=== PATIENT | female | born 1980 | race Caucasian/White ===

== ENCOUNTER → 2017-05-24 | Outpatient (CLI) | payer OTHER ==
[~2017-05-24] MED LIST: CIPR500 PO; CLAR500; CLAR500CR; CYCL10 PO; Cefpodoxime Pr100 MG PO; ESCI20; GUAI100SY; GUAPSEER; HYDACE5 PO; HYDGUAL120; HYDR1TAB94 PO; Inderal80 MG PO; LEXAPRO; LISI5 PO; NAPR500 PO; OMEP20ER PO; OXYACE5T PO; PRED20 PO; PROAIR; PROM25 PO; Percocet 10-321 EACH PO; Pyridium100 MG PO; RABE20; SPRINTEC; Valium5 MG PO; YAS; Zoloft50 MG PO
== END ==
LOC: LAB EV 14:21 → LAB SHORT 14:21
DX: R10.9 Unspecified abdominal pain (principal)
CPT/HCPCS: 87086

== ENCOUNTER 2017-07-04 13:42 | Day surgery (SDC) | payer OTHER ==
[~2017-07-04] VITALS: Ht 160 cm; Wt 158.0 kg
[2017-07-04] MEDS ORDERED: LISI5 (14:20)
[2017-07-04] MEDS ORDERED: Hair, Skin & N1 EACH (14:20)
[2017-07-04] MEDS ORDERED: ZOLP5 ×2 (14:20→14:22)
[2017-07-04] MEDS ORDERED: CYCL10 (14:21)
[2017-07-04] MEDS ORDERED: Percocet 10-321 EACH (14:21)
== END 2017-07-04 15:45 | disposition home or self-care (01) ==
LOC: ORSCSDS 13:42
PROVIDERS: Internal Medicine Gastroenterology
PROC: 0DBK8ZX Excision of Ascending Colon, Via Natural or Artificial Opening Endoscopic, Diagnostic (ICD-10-PCS; principal; 2017-07-04 15:30)
PROC: 0DBM8ZX Excision of Descending Colon, Via Natural or Artificial Opening Endoscopic, Diagnostic (ICD-10-PCS; principal; 2017-07-04 15:30)
DX: Z85.038 Personal history of other malignant neoplasm of large intestine (principal); D12.2 Benign neoplasm of ascending colon; D12.4 Benign neoplasm of descending colon; Z15.09 Genetic susceptibility to other malignant neoplasm; I10 Essential (primary) hypertension; G47.33 Obstructive sleep apnea (adult) (pediatric); K21.9 Gastro-esophageal reflux disease without esophagitis; E66.01 Morbid (severe) obesity due to excess calories; Z68.44 Body mass index [BMI] 60.0-69.9, adult; Z79.899 Other long term (current) drug therapy
CPT/HCPCS: 88305; J7120

== ENCOUNTER → 2017-10-18 | Outpatient (CLI) | payer OTHER ==
[~2017-10-18] MED LIST changes: +CYCL10; +Hair, Skin & N1 EACH; +LISI5; +Percocet 10-321 EACH; +ZOLP5
[2017-10-18 15:04] LABS: BASOPHILS ABSOLUTE AUTO 0.06 K/mm3 (0.00-0.23); BASOPHILS PERCENT AUTO 1 % (0-2); EOSINOPHILS ABSOLUTE AUTO 0.01 K/mm3 (0.00-0.68); EOSINOPHILS PERCENT AUTO 0 % (0-6); Hematocrit 40.7 % (33.0-51.0); Hemoglobin 13.4 g/dL (11.5-16.0); IMMATURE GRAN ABSOLUTE AUTO 0.04 K/mm3 (0.00-0.10); IMMATURE GRAN PERCENT AUTO 0 % (0-1); LYMPHOCYTES ABSOLUTE AUTO 3.26 K/mm3 (0.84-5.20); LYMPHOCYTES PERCENT AUTO 34 % (21-46); MONOCYTES ABSOLUTE AUTO 0.74 K/mm3 (0.16-1.47); MONOCYTES PERCENT AUTO 8 % (4-13); Mean Corpuscular HGB Conc 32.9 g/dL (31.5-36.5); Mean Corpuscular Volume 88 fL (80-100); Mean Platelet Volume 9.6 fL (9.1-12.4); NEUTROPHILS ABSOLUTE AUTO 5.59 K/mm3 (1.96-9.15); NEUTROPHILS PERCENT AUTO 58 % (41-73); Platelet Count 310 K/mm3 (150-400); RDW Coefficient Variation 13.7 % (11.7-14.2); RDW Standard Deviation 43.5 fL (35.1-46.3); Red Blood Cell Count 4.62 M/mm3 (3.80-5.20)
[2017-10-18 15:21] LABS: Anion Gap 9 mmol/L (6-16); Blood Urea Nitrogen 12 mg/dL (8-24); Bun/Creatinine Ratio 14.3 (12.0-20.0); CO2, Blood 26 mmol/L (21-32); Calcium, Blood 9.5 mg/dL (8.5-10.1); Chloride, Blood 106 mmol/L (98-108); Creatinine, Blood 0.84 mg/dL (0.40-1.00); Glomerular Filtration Rate >60 (60-); Glucose, Blood 136 mg/dL (70-99); Potassium, Blood 4.4 mmol/L (3.5-5.5); Sodium, Blood 141 mmol/L (136-145); Thyroid Stimulating Hormone 1.142 uIU/mL (0.360-4.800)
== END | disposition home or self-care (01) ==
LOC: LAB SHORT 14:57 → LAB EV 14:57
PROVIDERS: Physician Assistant Surgical
DX: R53.83 Other fatigue (principal)
CPT/HCPCS: 80048; 84443; 85025

== ENCOUNTER → 2018-02-18 | Outpatient (CLI) | payer OTHER ==
[2018-02-18 18:45] LABS: Source, Urine Catheter
[2018-02-18 18:50] LABS: Bilirubin, Urine Neg (Neg); Blood, Urine Neg (Neg); Glucose Qualitative, Urine Neg (Neg); Ketones, Urine Neg (Neg); Leukocyte Esterase, Urine Neg (Neg); Nitrite, Urine Neg (Neg); Protein, Urine Neg (Neg); Specific Gravity, Urine 1.025 (1.003-1.022); Urobilinogen, Urine NORM (Normal)
[2018-02-18 19:01] LABS: Appearance, Urine Clear (Clear); Color, Urine Yellow (P-Yellow)
[2018-02-20 15:08] LABS: HPV 16 Negative (Negative); HPV 18 Negative (Negative); HPV OTHER HR TYPES Negative (Negative)
== END | disposition home or self-care (01) ==
LOC: LAB SHORT 16:17 → LAB 16:17
PROVIDERS: Nurse Practitioner Women's Health
DX: Z12.6 Encounter for screening for malignant neoplasm of bladder (principal); Z12.72 Encounter for screening for malignant neoplasm of vagina; Z91.89 Other specified personal risk factors, not elsewhere classified
CPT/HCPCS: 81003; 87624; G0123

== ENCOUNTER 2018-06-23 08:13 | Emergency (ER) | payer OTHER ==
[~2018-06-23] VITALS: Ht 160 cm; Wt 170.1 kg
[2018-06-23 09:51] LABS: BASOPHILS ABSOLUTE AUTO 0.02 K/mm3 (0.00-0.23); BASOPHILS PERCENT AUTO 0 % (0-2); EOSINOPHILS PERCENT AUTO 0 % (0-6); Hematocrit 40.1 % (33.0-51.0); Hemoglobin 12.6 g/dL (11.5-16.0); IMMATURE GRAN ABSOLUTE AUTO 0.01 K/mm3 (0.00-0.10); IMMATURE GRAN PERCENT AUTO 0 % (0-1); LYMPHOCYTES ABSOLUTE AUTO 1.25 K/mm3 (0.84-5.20); LYMPHOCYTES PERCENT AUTO 23 % (21-46); MONOCYTES ABSOLUTE AUTO 0.48 K/mm3 (0.16-1.47); MONOCYTES PERCENT AUTO 9 % (4-13); Mean Corpuscular HGB 27.9 pg (26.0-34.0); Mean Corpuscular HGB Conc 31.4 g/dL (31.5-36.5); Mean Corpuscular Volume 89 fL (80-100); Mean Platelet Volume 10.1 fL (9.1-12.4); NEUTROPHILS ABSOLUTE AUTO 3.79 K/mm3 (1.96-9.15); NEUTROPHILS PERCENT AUTO 68 % (41-73); Platelet Count 218 K/mm3 (150-400); RDW Coefficient Variation 14.2 % (11.7-14.2); RDW Standard Deviation 45.6 fL (35.1-46.3); Red Blood Cell Count 4.51 M/mm3 (3.80-5.20); White Blood Cell Count 5.55 K/mm3 (4.00-11.30)
[2018-06-23 10:09] LABS: Alanine Aminotransfer (ALT/SGP 177 U/L (12-78); Albumin, Blood 3.4 g/dL (3.4-5.0); Albumin/Globulin Ratio 0.9 (0.8-1.8); Alk Phos 109 U/L (50-136); Anion Gap 5 mmol/L (6-16); Aspartate Aminotrans (AST/SGOT 130 U/L (12-37); Bilirubin, Total 0.7 mg/dL (0.1-1.0); Blood Urea Nitrogen 12 mg/dL (8-24); CO2, Blood 26 mmol/L (21-32); Calcium, Blood 8.2 mg/dL (8.5-10.1); Chloride, Blood 107 mmol/L (98-108); Creatinine, Blood 0.75 mg/dL (0.40-1.00); Globulin, Blood 3.9 g/dL (2.2-4.0); Glomerular Filtration Rate >60 (60-); Glucose, Blood 108 mg/dL (70-99); Potassium, Blood 4.5 mmol/L (3.5-5.5); Sodium, Blood 138 mmol/L (136-145); Total Protein, Blood 7.3 g/dL (6.4-8.2)
[2018-06-23] MEDS ORDERED: Prednisone20 MG PO (11:47)
[2018-06-23] MEDS ORDERED: ALBU90OI61 INH (11:47)
[2018-06-23] MEDS ORDERED: BENZ100A PO (11:47)
[2018-06-24] MEDS ORDERED: OMEPRAZOLE MAGN20 MG PO (11:22)
[2018-06-24] MEDS ORDERED: CYCL10 PO (11:22)
[2018-06-24] MEDS ORDERED: ZOLP5 PO (11:23)
[2018-06-24] MEDS ORDERED: PROP160ER PO (11:23)
[2018-06-24] MEDS ORDERED: Zoloft100 MG PO (11:24)
[2018-06-24] MEDS ORDERED: RIZATRIPTAN10 MG SL (11:24)
[2018-06-24] MEDS ORDERED: Percocet 10-321 EACH PO (11:24)
[2018-06-24] MEDS ORDERED: BOTOX COSMETIC100 U (11:25)
[2018-06-24] MEDS ORDERED: MULTI VITAMIN1 EACH PO (11:25)
== END 2018-06-23 12:00 | disposition home or self-care (01) ==
LOC: ER 08:13
PROVIDERS: Physician Assistant
DX: J18.1 Lobar pneumonia, unspecified organism (principal); Z79.899 Other long term (current) drug therapy; Z79.52 Long term (current) use of systemic steroids; G43.909 Migraine, unspecified, not intractable, without status migrainosus
CPT/HCPCS: 36415; 71046; 80053; 85025; 94640; 94644; 96374; 96375; 99284-25; J1885; J2405; J7512

== ENCOUNTER 2018-09-25 12:23 | Day surgery (SDC) | payer OTHER ==
[~2018-09-25] VITALS: Ht 160 cm; Wt 157.9 kg
[~2018-09-25 12:23] MED LIST changes: +ALBU90OI61 INH; +BENZ100A PO; +BOTOX COSMETIC100 U; +MULTI VITAMIN1 EACH PO; +OMEPRAZOLE MAGN20 MG PO; +PROP160ER PO; +Prednisone20 MG PO; +RIZATRIPTAN10 MG SL; +ZOLP5 PO; +Zoloft100 MG PO
== END 2018-09-25 14:45 | disposition home or self-care (01) ==
LOC: ORSCSDS 12:23
PROVIDERS: Internal Medicine Gastroenterology
PROC: 0DJD8ZZ Inspection of Lower Intestinal Tract, Via Natural or Artificial Opening Endoscopic (ICD-10-PCS; principal; 2018-09-25 14:00)
DX: Z15.09 Genetic susceptibility to other malignant neoplasm (principal); Z86.010 Personal history of colon polyps; G47.33 Obstructive sleep apnea (adult) (pediatric); D50.9 Iron deficiency anemia, unspecified; E66.9 Obesity, unspecified; Z68.44 Body mass index [BMI] 60.0-69.9, adult; Z79.899 Other long term (current) drug therapy
CPT/HCPCS: J2250; J2704; J7120

== ENCOUNTER 2018-12-25 13:50 | Day surgery (SDC) | payer OTHER ==
[~2018-12-25] VITALS: Ht 160 cm; Wt 159.3 kg
[~2018-12-25 13:50] MED LIST changes: +Prinivil10 MG PO
[2018-12-25] MEDS ORDERED: LISI5 (14:22)
== END 2018-12-25 16:10 | disposition home or self-care (01) ==
LOC: ORSCSDS 13:50
PROVIDERS: Internal Medicine Gastroenterology
PROC: 0DB68ZX Excision of Stomach, Via Natural or Artificial Opening Endoscopic, Diagnostic (ICD-10-PCS; principal; 2018-12-25 15:15)
DX: Z15.09 Genetic susceptibility to other malignant neoplasm (principal); Z80.0 Family history of malignant neoplasm of digestive organs; K29.80 Duodenitis without bleeding; K21.9 Gastro-esophageal reflux disease without esophagitis; K29.70 Gastritis, unspecified, without bleeding; K44.9 Diaphragmatic hernia without obstruction or gangrene; G47.33 Obstructive sleep apnea (adult) (pediatric); I10 Essential (primary) hypertension; E66.01 Morbid (severe) obesity due to excess calories; Z68.44 Body mass index [BMI] 60.0-69.9, adult; Z79.899 Other long term (current) drug therapy
CPT/HCPCS: 87081; J2250; J2704; J7120

== ENCOUNTER 2019-03-06 01:53 | Emergency (ER) | payer OTHER ==
[~2019-03-06] VITALS: Ht 160 cm; Wt 163.3 kg
[2019-03-06 02:10] LABS: Source, Urine Clean Catch
[2019-03-06 02:14] LABS: Appearance, Urine Hazy (Clear); Bilirubin, Urine Neg (Neg); Blood, Urine 2+ (Neg); Color, Urine Yellow (P-Yellow); Glucose Qualitative, Urine Neg (Neg); Ketones, Urine Neg (Neg); Leukocyte Esterase, Urine 1+ (Neg); Nitrite, Urine Neg (Neg); Protein, Urine Neg (Neg); Urobilinogen, Urine NORM (Normal)
[2019-03-06 02:20] LABS: Bacteria Many /hpf; Red Blood Cells, Urine 0-2 /hpf (0-2); Squamous Epithelial Cells Few /hpf (Few)
== END 2019-03-06 03:13 | disposition home or self-care (01) ==
LOC: ER 01:53
PROVIDERS: Emergency Medicine
DX: R30.0 Dysuria (principal); S02.2XXA Fracture of nasal bones, initial encounter for closed fracture; G43.909 Migraine, unspecified, not intractable, without status migrainosus; Z79.899 Other long term (current) drug therapy; X58.XXXA Exposure to other specified factors, initial encounter
CPT/HCPCS: 81001; 81025; 87077; 87086; 87186; 99283

== ENCOUNTER → 2021-06-23 | Outpatient (CLI) | payer BC, OTHER ==
[~2021-06-23] MED LIST changes: +BUSPIRONE HCL7.5 M1 PO; +LISI20 PO; +ONDA4ODT MM; +PERCOCET 10-321 EAC2 PO; +SERT100 PO; +TIZANIDINE HCL2 M3 PO
[2021-06-23 17:27] LABS: Hematocrit 36.6 % (33.0-51.0); Hemoglobin 11.8 g/dL (11.5-16.0); Mean Corpuscular HGB 28.2 pg (26.0-34.0); Mean Corpuscular HGB Conc 32.2 g/dL (31.5-36.5); Mean Corpuscular Volume 87 fL (80-100); Mean Platelet Volume 9.9 fL (9.1-12.4); Platelet Count 237 K/mm3 (150-400); RDW Coefficient Variation 14.2 % (11.7-14.2); RDW Standard Deviation 44.9 fL (35.1-46.3); Red Blood Cell Count 4.19 M/mm3 (3.80-5.20); White Blood Cell Count 7.26 K/mm3 (4.00-11.30)
[2021-06-23 17:46] LABS: Albumin, Blood 3.2 g/dL (3.4-5.0); Bilirubin, Total 0.3 mg/dL (0.1-1.0); Calcium, Blood 8.4 mg/dL (8.5-10.1); Creatinine, Blood 0.83 mg/dL (0.40-1.00); Globulin, Blood 3.3 g/dL (2.2-4.0); Potassium, Blood 4.1 mmol/L (3.5-5.5); Thyroid Stimulating Hormone 1.071 uIU/mL (0.360-4.800); Total Protein, Blood 6.5 g/dL (6.4-8.2)
== END | disposition home or self-care (01) ==
LOC: LAB 17:20 → LAB SHORT 17:20
PROVIDERS: Nurse Practitioner Psychiatric/Mental Health
DX: F32.9 Major depressive disorder, single episode, unspecified (principal)
CPT/HCPCS: 80053; 83036; 84443; 85027

== ENCOUNTER 2024-05-26 10:38 | Emergency (ER) | payer OTHER ==
[~2024-05-26] VITALS: Ht 160 cm; Wt 183.7 kg
[2024-05-26] MEDS ORDERED: Ketorolac Tromethamine 15mg Vial IV ONE (11:05)
[2024-05-26] MEDS ORDERED: Ondansetron HCl 2 MG / ML 2ML Vial IV ONE ×2 (11:05→13:10)
[2024-05-26 12:00] LABS: BASOPHILS ABSOLUTE AUTO 0.05 K/mm3 (0.00-0.23); BASOPHILS PERCENT AUTO 1 % (0-2); EOSINOPHILS PERCENT AUTO 0 % (0-6); Hematocrit 38.6 % (33.0-51.0); IMMATURE GRAN ABSOLUTE AUTO 0.04 K/mm3 (0.00-0.10); IMMATURE GRAN PERCENT AUTO 0 % (0-1); LYMPHOCYTES ABSOLUTE AUTO 1.61 K/mm3 (0.84-5.20); LYMPHOCYTES PERCENT AUTO 17 % (21-46); MONOCYTES ABSOLUTE AUTO 0.66 K/mm3 (0.16-1.47); MONOCYTES PERCENT AUTO 7 % (4-13); Mean Corpuscular HGB 29.3 pg (26.0-34.0); Mean Corpuscular HGB Conc 33.7 g/dL (31.5-36.5); Mean Corpuscular Volume 87 fL (80-100); Mean Platelet Volume 9.4 fL (9.1-12.4); NEUTROPHILS ABSOLUTE AUTO 7.34 K/mm3 (1.96-9.15); NEUTROPHILS PERCENT AUTO 76 % (41-73); Platelet Count 273 K/mm3 (150-400); RDW Coefficient Variation 13.6 % (11.7-14.2); RDW Standard Deviation 42.4 fL (35.1-46.3); Red Blood Cell Count 4.44 M/mm3 (3.80-5.20)
[2024-05-26] MEDS ORDERED: Tamsulosin HCl 0.4 MG Cap PO ONE (12:15)
[2024-05-26 12:18] LABS: Bilirubin, Total 0.9 mg/dL (0.1-1.0); Bun/Creatinine Ratio 14.8 (12.0-20.0); Calcium, Blood 9.1 mg/dL (8.5-10.1); Creatinine, Blood 1.08 mg/dL (0.40-1.00); Globulin, Blood 3.9 g/dL (2.2-4.0); Potassium, Blood 4.6 mmol/L (3.5-5.5); Total Protein, Blood 7.9 g/dL (6.4-8.2)
[2024-05-26] MEDS ORDERED: ASPI81CH PO (12:26)
[2024-05-26] MEDS ORDERED: HYDCHL25 PO (12:26)
[2024-05-26 13:10] VITALS: BP 151/98
[2024-05-26] MEDS ORDERED: OxyCODONE HCL 5 MG TAB PO ONE (13:10)
[2024-05-26 13:27] LABS: Source, Urine Clean Catch
[2024-05-26 13:29] LABS: Appearance, Urine Turbid (Clear); Bilirubin, Urine Neg (Neg); Blood, Urine 5+ (Neg); Color, Urine Brown (P-Yellow); Glucose Qualitative, Urine Neg (Neg); Ketones, Urine Neg (Neg); Leukocyte Esterase, Urine 1+ (Neg); Nitrite, Urine Pos (Neg); Protein, Urine 3+ (Neg); Specific Gravity, Urine 1.015 (1.003-1.022); Urobilinogen, Urine NORM (Normal)
[2024-05-26 13:41] LABS: Bacteria Many /hpf; Red Blood Cells, Urine 50-100 /hpf (0-2); Squamous Epithelial Cells Rare /hpf (Few); Uric Acid Crystals Rare /hpf
[2024-05-26] MEDS ORDERED: HYDROmorphone HCl/Pf 1MG SYR IV ONE (13:55)
[2024-05-26] MEDS ORDERED: Cephalexin Monohydrate 500 MG Cap PO ONE (13:55)
[2024-05-26] MEDS ORDERED: Flomax0.4 MG PO (14:07)
[2024-05-26] MEDS ORDERED: IBUP600 PO (14:07)
[2024-05-26] MEDS ORDERED: ONDA4ODT MM (14:07)
[2024-05-26] MEDS ORDERED: Roxicodone5 MG PO (14:07)
== END 2024-05-26 14:19 | disposition home or self-care (01) ==
LOC: ER 10:38
PROVIDERS: Emergency Medicine
DX: N13.2 Hydronephrosis with renal and ureteral calculous obstruction (principal); I10 Essential (primary) hypertension; Z88.5 Allergy status to narcotic agent; Z79.899 Other long term (current) drug therapy
CPT/HCPCS: 74176; 80053; 81001; 85025; 87086; 96374; 96375; 96376; 99284-25; A9270; J1171; J1885; J2405

== ENCOUNTER → 2024-08-07 | Outpatient (CLI) | payer OTHER ==
[~2024-08-07] MED LIST changes: +ASPI81CH PO; +Flomax0.4 MG PO; +HYDCHL25 PO; +IBUP600 PO; +Roxicodone5 MG PO
== END | disposition home or self-care (01) ==
LOC: LAB 17:41 → LAB SHORT 17:41
DX: R30.0 Dysuria (principal)
CPT/HCPCS: 87086

== ENCOUNTER 2025-01-18 10:01 | Emergency (ER) | payer OTHER ==
[~2025-01-18] VITALS: Ht 160 cm; Wt 190.6 kg
[2025-01-18] MEDS ORDERED: NS 1,000 ML IV SCH ×2 (10:50→12:45)
[2025-01-18] MEDS ORDERED: Morphine Sulfate 4 MG/1 ML Injection IV ONE (10:50)
[2025-01-18] MEDS ORDERED: Ondansetron HCl 2 MG / ML 2ML Vial IV ONE (10:50)
[2025-01-18 11:19] LABS: BASOPHILS ABSOLUTE AUTO 0.03 K/mm3 (0.00-0.23); BASOPHILS PERCENT AUTO 0 % (0-2); EOSINOPHILS ABSOLUTE AUTO 0.00 K/mm3 (0.00-0.68); EOSINOPHILS PERCENT AUTO 0 % (0-6); Hematocrit 37.1 % (33.0-51.0); Hemoglobin 12.2 g/dL (11.5-16.0); IMMATURE GRAN ABSOLUTE AUTO 0.01 K/mm3 (0.00-0.10); IMMATURE GRAN PERCENT AUTO 0 % (0-1); LYMPHOCYTES ABSOLUTE AUTO 2.33 K/mm3 (0.84-5.20); LYMPHOCYTES PERCENT AUTO 33 % (21-46); MONOCYTES ABSOLUTE AUTO 0.51 K/mm3 (0.16-1.47); MONOCYTES PERCENT AUTO 7 % (4-13); Mean Corpuscular HGB Conc 32.9 g/dL (31.5-36.5); Mean Corpuscular Volume 89 fL (80-100); NEUTROPHILS ABSOLUTE AUTO 4.20 K/mm3 (1.96-9.15); NEUTROPHILS PERCENT AUTO 59 % (41-73); NRBC ABSOLUTE 0.00 K/mm3 (0.00-0.02); NRBC Auto 0.0 /100 WBC (0.0-0.2); Platelet Count 260 K/mm3 (150-400); RDW Coefficient Variation 14.6 % (11.7-14.2); RDW Standard Deviation 47.1 fL (35.1-46.3)
[2025-01-18 11:24] LABS: Alanine Aminotransfer (ALT/SGP 48.0 U/L (12-78); Albumin, Blood 3.4 g/dL (3.4-5.0); Albumin/Globulin Ratio 0.9 (0.8-1.8); Anion Gap 8.0 mmol/L (3-11); Aspartate Aminotrans (AST/SGOT 24.0 U/L (12-37); Bilirubin, Total 0.4 mg/dL (0.1-1.0); Blood Urea Nitrogen 16.0 mg/dL (8-24); CO2, Blood 26.0 mmol/L (21-32); Calcium, Blood 8.9 mg/dL (8.5-10.1); Chloride, Blood 108.0 mmol/L (98-108); Creatinine, Blood 0.83 mg/dL (0.40-1.00); Globulin, Blood 3.6 g/dL (2.2-4.0); Glucose, Blood 116.0 mg/dL (70-99); Potassium, Blood 4.4 mmol/L (3.5-5.5); Sodium, Blood 138.0 mmol/L (136-145); Total Protein, Blood 7.0 g/dL (6.4-8.2)
[2025-01-18 12:46] LABS: Source, Urine Clean Catch
[2025-01-18 12:53] LABS: Bilirubin, Urine Neg (Neg); Color, Urine Yellow (P-Yellow); Glucose Qualitative, Urine Neg (Neg); Ketones, Urine Neg (Neg); Leukocyte Esterase, Urine Neg (Neg); Protein, Urine 1+ (Neg); Specific Gravity, Urine 1.025 (1.003-1.022); Urobilinogen, Urine NORM (Normal)
[2025-01-18 13:04] LABS: White Blood Cells, Urine 0-2 /hpf (0-5)
[2025-01-18] MEDS ORDERED: HYDROmorphone HCl/Pf 1MG SYR IV ONE (13:35)
[2025-01-18] MEDS ORDERED: Ketorolac Tromethamine 15mg Vial IV ONE (13:35)
[2025-01-18] MEDS ORDERED: Voltaren100 GM TOP (15:35)
[2025-01-18] MEDS ORDERED: LIDO700A20 TOP (15:35)
[2025-01-18] MEDS ORDERED: ONDA4ODT MM (15:35)
[2025-01-18] MEDS ORDERED: OXAYDO5 M1 PO (15:35)
[2025-01-18 15:53] VITALS: BP 116/71
== END 2025-01-18 15:54 | disposition home or self-care (01) ==
LOC: ER 10:01
PROVIDERS: Emergency Medicine
DX: R10.11 Right upper quadrant pain (principal); E87.20 Acidosis, unspecified; R16.2 Hepatomegaly with splenomegaly, not elsewhere classified; K76.0 Fatty (change of) liver, not elsewhere classified; I10 Essential (primary) hypertension; Z90.49 Acquired absence of other specified parts of digestive tract; Z85.038 Personal history of other malignant neoplasm of large intestine; Z88.5 Allergy status to narcotic agent; Z79.82 Long term (current) use of aspirin; Z79.899 Other long term (current) drug therapy
CPT/HCPCS: 71046; 74177; 80053; 81001; 83605; 83690; 85025; 87086; 96361; 96374-59; 96375; 99284-25; J1171; J1885; J2270; J2405; J7030; Q9967